=== PATIENT | male | born 1960 | race Caucasian/White ===

== ENCOUNTER 2018-09-08 14:45 | Inpatient (IN) | payer MEDICARE, OTHER ==
[~2018-09-08] VITALS: Ht 188 cm; Wt 78.5 kg
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
[2018-09-08] MEDS ORDERED: MENT1LOZ19 MM (15:31)
[2018-09-08] MEDS ORDERED: FURO-151 PO (15:31)
[2018-09-08] MEDS ORDERED: GLUC1KIT IJ (15:31)
[2018-09-08] MEDS ORDERED: PANT40TA2 PO (15:31)
[2018-09-08] MEDS ORDERED: MORP30TA2 PO (15:31)
[2018-09-08] MEDS ORDERED: AMIN30LI2 PO (15:31)
[2018-09-08] MEDS ORDERED: ALBU8.5H8 IH (15:31)
[2018-09-08] MEDS ORDERED: NA P133E RC (15:31)
[2018-09-08] MEDS ORDERED: SACC250C PO (15:31)
[2018-09-08] MEDS ORDERED: INSU100V7 SQ (15:31)
[2018-09-08] MEDS ORDERED: DOCU250C14 PO (15:31)
[2018-09-08] MEDS ORDERED: FERR325T28 PO (15:31)
[2018-09-08] MEDS ORDERED: MULT-213 PO (15:31)
[2018-09-08] MEDS ORDERED: ARGI1POW17 PO (15:31)
[2018-09-08] MEDS ORDERED: BISA10SU95 RC (15:31)
[2018-09-08] MEDS ORDERED: GUAI100S4 PO (15:31)
[2018-09-08] MEDS ORDERED: BLOO-140 IN (15:31)
[2018-09-08] MEDS ORDERED: SPIR50TA PO (15:31)
[2018-09-08] MEDS ORDERED: CARV6.252 PO (15:31)
[2018-09-08] MEDS ORDERED: MAGN400O6 PO (15:31)
[2018-09-08] MEDS ORDERED: ASCO500C18 PO (15:31)
[2018-09-08] MEDS ORDERED: SENN-168 PO (15:31)
--- NOTE | 2018-09-08 15:36 | NUR ---
BOAT FINISHER AT BEDSIDE.
[2018-09-08] MEDS ORDERED: ONDANSETRON 4 MG/2 ML VIAL ONE (15:59)
[2018-09-08] MEDS ORDERED: HYDROMORPHONE 1 MG/1 ML DISP.SYRIN ONE (15:59)
[2018-09-08] MEDS ORDERED: IV NORMAL SALINE 1000 ML BAG IV ONE (16:00)
[2018-09-08] MEDS ORDERED: ONDANSETRON 4 MG/2 ML VIAL IV ONE (16:00)
[2018-09-08] MEDS ORDERED: HYDROMORPHONE 1 MG/1 ML DISP.SYRIN IV ONE (16:00)
[2018-09-08 16:19] LABS: BASOPHILS % (AUTO) 0.3 % (0.0-2.0); EOSINOPHILS % (AUTO) 0.1 % (0.0-7.0); HEMATOCRIT 32.3 % (36.7-47.1); LYMPHOCYTES # (AUTO) 0.6 K/uL (20.0-40.0); LYMPHOCYTES % (AUTO) 4.2 % (20.5-51.5); MEAN CORPUSCULAR HGB CONC 31 g/dL (32.5-36.3); MEAN CORPUSCULAR VOLUME 77.3 fL (73.0-96.2); MONOCYTES # (AUTO) 0.7 K/uL (2.0-10.0); MONOCYTES % (AUTO) 5.1 % (0.0-11.0); NEUTROPHILS # (AUTO) 12.5 K/uL (1.8-8.9); NEUTROPHILS % (AUTO) 90.3 % (38.5-71.5); PLATELET COUNT (AUTO) 309 K/uL (152-348); RED BLOOD CELL COUNT(AUTO) 4.17 MIL/uL (4.06-5.63); WHITE BLOOD COUNT (AUTO) 13.8 K/uL (3.6-10.2)
[2018-09-08 16:21] LABS: CREATININE 0.8 mg/dL (0.6-1.3)
[2018-09-08 16:27] LABS: BILIRUBIN,DIRECT 0.3 mg/dL (0.0-0.2); BILIRUBIN,TOTAL 0.7 mg/dL (0.2-1.0); TOTAL PROTEIN, SERUM 6.7 g/dL (6.4-8.2)
[2018-09-08] MEDS ORDERED: CLINDAMYCIN PHOSPHATE 600 MG/4 ML VIAL ONE (16:27)
[2018-09-08] MEDS ORDERED: CLINDAMYCIN PHOSPHATE IV 600 MG in IV DEXTROSE 5% 100 ML IV ONE (16:30)
--- NOTE | 2018-09-08 16:47 | NUR ---
ADMITTING REPORT GIVEN TO JULI MARTÍNEZ.
--- NOTE | 2018-09-08 16:48 | NUR ---
Pt. admitted to [address] [facility], under care of Dr. ESCOBAR Belongs List completed
--- NOTE | 2018-09-08 17:15 | NUR ---
Received patient from ER, wound pictures taken and wound dressings changed, trimming machine set up operator applied, patient is atrial flutter, bp recorded was low 82/58 p64. family brought food to patient for dinner.
[2018-09-08] MEDS ORDERED: ONDANSETRON 4 MG/2 ML VIAL IV PRN (17:30)
[2018-09-08] MEDS ORDERED: MAGNESIUM HYDROXIDE 30 ML LIQUID UDC PO PRN (17:30)
[2018-09-08] MEDS ORDERED: Z GUARD REMEDY PASTE 57 GM TUBE TOP PRN (17:30)
[2018-09-08] MEDS ORDERED: ACETAMINOPHEN 325 MG TABLET PO PRN (17:30)
[2018-09-08 18:23] VITALS: BP 86/50
[2018-09-08] MEDS ORDERED: DEXTROSE 50% 50 ML DISP.SYRIN IV PRN (19:00)
[2018-09-08 19:30] VITALS: BP 85/57
--- NOTE | 2018-09-08 19:30 | NUR ---
patient received lying in bed a/ox4. no signs of acute distress. safety and comfort measures provided. bed in lowest position, side rails up x2, and bed alarm on. will continue care.
[2018-09-08] MEDS: BLOOD SUGAR DIAGNOSTIC 1 EACH STRIP VI SCH (20:40)
[2018-09-08] MEDS: INSULIN REGULAR, HUMAN 300 UNITS/3 ML VIAL SQ PRN (20:45)
[2018-09-08] MEDS: CLINDAMYCIN PHOSPHATE IV 600 MG in IV DEXTROSE 5% 100 ML IV SCH (21:01)
[2018-09-08] MEDS: MORPHINE SULFATE 2 MG/1 ML DISP.SYRIN IV PRN ×2 (21:03→23:40)
--- NOTE | 2018-09-08 21:03 | NUR ---
c/o of pain. morphine administered. tolerated well.
--- NOTE | 2018-09-08 23:40 | NUR ---
patient c/o of pain. morphine too early to administer and returned back to Pyxis, charge nurse witness. norco administered. patient tolerated well.
[2018-09-08] MEDS: HYDROCODONE/APAP 5-325MG TABLET PO PRN (23:46)
[2018-09-08 23:59] VITALS: BP 90/59
[2018-09-09] MEDS: MORPHINE SULFATE 2 MG/1 ML DISP.SYRIN IV PRN ×3 (04:09→20:26)
--- NOTE | 2018-09-09 04:09 | NUR ---
c/o of pain. morphine administered. tolerated well.
[2018-09-09 04:22] VITALS: BP 90/63
[2018-09-09] MEDS: CLINDAMYCIN PHOSPHATE IV 600 MG in IV DEXTROSE 5% 100 ML IV SCH ×3 (05:00→22:23)
--- NOTE | 2018-09-09 05:58 | NUR ---
patient slept intermittently. a/o x4. no signs of acute distress. safety and comfort measures provided. v/s stable. will endorse care to morning nurse.
[2018-09-09 06:11] LABS: BASOPHILS # (AUTO) 0.1 K/uL (0.0-8.0); BASOPHILS % (AUTO) 0.6 % (0.0-2.0); EOSINOPHILS # (AUTO) 0.1 K/uL (0.0-0.7); EOSINOPHILS % (AUTO) 0.6 % (0.0-7.0); HEMATOCRIT 29.8 % (36.7-47.1); HEMOGLOBIN 9.3 g/dL (12.5-16.3); LYMPHOCYTES # (AUTO) 0.8 K/uL (20.0-40.0); LYMPHOCYTES % (AUTO) 5.1 % (20.5-51.5); MEAN CORPUSCULAR HEMOGLOBIN 24.2 uug (23.8-33.4); MEAN CORPUSCULAR HGB CONC 31 g/dL (32.5-36.3); MONOCYTES % (AUTO) 6.3 % (0.0-11.0); NEUTROPHILS # (AUTO) 13.5 K/uL (1.8-8.9); NEUTROPHILS % (AUTO) 87.4 % (38.5-71.5); PLATELET COUNT (AUTO) 291 K/uL (152-348); RED BLOOD CELL COUNT(AUTO) 3.83 MIL/uL (4.06-5.63); WHITE BLOOD COUNT (AUTO) 15.4 K/uL (3.6-10.2)
[2018-09-09 06:14] LABS: CREATININE 0.8 mg/dL (0.6-1.3); PHOSPHOROUS 2.9 mg/dL (2.5-4.9); POTASSIUM 4.6 mmol/L (3.5-5.1)
[2018-09-09] MEDS: BLOOD SUGAR DIAGNOSTIC 1 EACH STRIP VI SCH ×4 (06:40→20:27)
--- NOTE | 2018-09-09 07:45 | NUR ---
Received patient awake in bed. AAOx4. IV on right Ac intact and patent. Patient has cellulitis on R hand/FA, redness on sacrum, R BKA, left toe amputation and excoriations on L leg, R knee. No complaints of pain at this time. Safety measures implemented. Aflutter on monitor. All needs met at this time. Comfort provided. Call light within reach. Will continue to monitor throughout shift.
[2018-09-09] MEDS: INSULIN REGULAR, HUMAN 300 UNIT/3 ML VIAL SQ PRN ×3 (07:55→17:03)
[2018-09-09] MEDS ORDERED: BISACODYL 10 MG SUPP.RECT RC PRN (08:00)
[2018-09-09] MEDS ORDERED: FLEET ENEMA 133 ML BOTTLE RC PRN (08:00)
[2018-09-09] MEDS ORDERED: ALBUTEROL SULFATE 8 GM HFA.AER.AD IH PRN (08:00)
[2018-09-09] MEDS ORDERED: MAGNESIUM HYDROXIDE 30 ML LIQUID UDC PO PRN (08:00)
[2018-09-09] MEDS ORDERED: GUAIFENESIN SUGAR FREE 100 MG/5 ML UDC PO PRN (08:00)
[2018-09-09 08:09] VITALS: BP 85/60
[2018-09-09] MEDS ORDERED: Medication Not On Formulary EA (Multivitamins W-Minerals (Multivitamin With Minerals) 1 PO SCH (09:00)
[2018-09-09] MEDS ORDERED: ALBUTEROL SULFATE 2.5 MG/3 ML NEBU NEB PRN (09:00)
[2018-09-09] MEDS ORDERED: Medication Not On Formulary EA (Saccharomyces Boulardii (Florastor) 250 MG) PO SCH (09:00)
[2018-09-09] MEDS: FUROSEMIDE 40 MG TABLET PO SCH (09:00)
[2018-09-09] MEDS ORDERED: CARVEDILOL 6.25 MG TABLET PO SCH (09:00)
[2018-09-09] MEDS ORDERED: Medication Not On Formulary EA (Amino Acids/Protein Hydrolys (Pro-Stat Liquid) 30 ML) PO SCH (09:00)
[2018-09-09] MEDS ORDERED: Medication Not On Formulary EA (Argin/Glut/Cahmb/Collag/Mv-Min (Juven Packet) 1 EACH) PO SCH (09:00)
[2018-09-09] MEDS: DOCUSATE SODIUM 250 MG CAPSULE PO SCH ×2 (09:00→16:41)
[2018-09-09] MEDS ORDERED: Medication Not On Formulary EA (Ascorbic Acid (Vitamin C) 500 MG) PO SCH (09:00)
[2018-09-09] MEDS: SPIRONOLACTONE 50 MG TABLET PO SCH (09:00)
[2018-09-09] MEDS: PANTOPRAZOLE SODIUM 40 MG TABLET.DR PO SCH ×2 (09:06→16:41)
[2018-09-09] MEDS: FERROUS SULFATE 325 MG TABEC PO SCH (09:09)
[2018-09-09] MEDS: ACIDOPHILUS/BULGARICUS CHEW TAB PO SCH ×2 (09:09→16:40)
[2018-09-09] MEDS: ASCORBIC ACID 500 MG TABLET PO SCH (09:10)
[2018-09-09] MEDS: MULTIVIT, IRON, MIN NO. 8, FA TABLET PO SCH (09:10)
[2018-09-09] MEDS: HYDROCODONE/APAP 5-325MG TABLET PO PRN ×2 (09:15→16:42)
[2018-09-09] MEDS ORDERED: IV NORMAL SALINE 500 ML BAG IV ONE (11:30)
[2018-09-09] MEDS ORDERED: MORP15TA7 PO (11:36)
--- NOTE | 2018-09-09 11:40 | NUR ---
Patient BP 81/43, below baseline. MD Viveros notified. 500 ml NS bolus ordered and administered. Patient tolerated bolus. BP back to 86/56.
[2018-09-09 12:00] VITALS: BP 86/56
[2018-09-09] MEDS ORDERED: IV NORMAL SALINE 500 ML IV ONE (12:00)
[2018-09-09] MEDS ORDERED: INSU100C (13:25)
[2018-09-09] MEDS ORDERED: BENZOCAINE/MENTH/CETYLPYRD LOZENGE MM PRN (14:30)
[2018-09-09] MEDS: PROTEIN SUPPLEMENT (PROSTAT) 30 ML LIQUID PO SCH (16:41)
[2018-09-09 16:55] VITALS: BP 86/63
--- NOTE | 2018-09-09 19:30 | NUR ---
Patient resting in bed comfortably at this time. In no acute distress. Comfort provided at all times. Continue plan of care.
--- NOTE | 2018-09-09 19:30 | NUR ---
patient received lying in bed and sleeping. no signs of acute distress. v/s stable. safety and comfort measures provided. will continue care. patient is refusing first step mattress to be placed on bed at this time. He was educated on why it was important to have it for multiple skin problems, but he did not want to be moved in bed and will let me know when he is ready to have it on his bed. will continue plan of care.
[2018-09-09 20:00] VITALS: BP 94/64
[2018-09-09] MEDS: SENNOSIDES 1 TABLET PO SCH (20:26)
[2018-09-09] MEDS: INSULIN REGULAR, HUMAN 300 UNITS/3 ML VIAL SQ PRN (20:39)
[2018-09-09] MEDS: INSULIN GLARGINE,HUM 300 UNITS/3 ML CARTRIDGE SQ SCH (20:40)
[2018-09-09] MEDS: ZOLPIDEM 5 MG TABLET PO PRN (22:28)
[2018-09-10 00:11] VITALS: BP 88/57
[2018-09-10 04:00] VITALS: BP 93/58
[2018-09-10] MEDS: CLINDAMYCIN PHOSPHATE IV 600 MG in IV DEXTROSE 5% 100 ML IV SCH ×3 (05:23→22:55)
[2018-09-10 06:21] LABS: MAGNESIUM 2.1 mg/dL (1.8-2.4); PHOSPHOROUS 3.6 mg/dL (2.5-4.9); POTASSIUM 5.1 mmol/L (3.5-5.1)
--- NOTE | 2018-09-10 06:31 | NUR ---
patient slept intermittently. no signs of acute distress. v/s stable. safety and comfort measures provided on shift. seizures precautions initiated. all medications administered and tolerated well. no urine output in urinal on my shift. will endorse care to morning nurse. c/o of pain. morphine administered. patient tolerated well.: 2025 c/o of sleeping pattern. Ambien administered. patient tolerated well.: 2227
[2018-09-10] MEDS: PANTOPRAZOLE SODIUM 40 MG TABLET.DR PO SCH ×2 (06:34→17:22)
[2018-09-10] MEDS: BLOOD SUGAR DIAGNOSTIC 1 EACH STRIP VI SCH ×4 (06:37→20:47)
[2018-09-10 06:55] LABS: BASOPHILS # (AUTO) 0.1 K/uL (0.0-8.0); BASOPHILS % (AUTO) 0.5 % (0.0-2.0); EOSINOPHILS # (AUTO) 0.1 K/uL (0.0-0.7); EOSINOPHILS % (AUTO) 0.5 % (0.0-7.0); HEMATOCRIT 32.5 % (36.7-47.1); HEMOGLOBIN 10.1 g/dL (12.5-16.3); LYMPHOCYTES # (AUTO) 0.7 K/uL (20.0-40.0); LYMPHOCYTES % (AUTO) 5.6 % (20.5-51.5); MEAN CORPUSCULAR HEMOGLOBIN 24.3 uug (23.8-33.4); MEAN CORPUSCULAR HGB CONC 31 g/dL (32.5-36.3); MONOCYTES # (AUTO) 0.8 K/uL (2.0-10.0); MONOCYTES % (AUTO) 6.3 % (0.0-11.0); NEUTROPHILS # (AUTO) 10.8 K/uL (1.8-8.9); NEUTROPHILS % (AUTO) 87.1 % (38.5-71.5); PLATELET COUNT (AUTO) 324 K/uL (152-348); RED BLOOD CELL COUNT(AUTO) 4.16 MIL/uL (4.06-5.63); WHITE BLOOD COUNT (AUTO) 12.4 K/uL (3.6-10.2)
--- NOTE | 2018-09-10 07:21 | NUR ---
RECEIVED PATIENT ALERT AND ORIENTED WITH NO SOB NOTED AT THIS TIME , NO C/O PAIN AT THIS TIME. WILL PROVIDE SAFETY AND COMFORT AT ALL TIMES. CALL LIGHT WITHIN REACHED. WILL CONTINUE TO MONITOR AND CONTINUE TREATMENT PLAN.
[2018-09-10] MEDS: PROTEIN SUPPLEMENT (PROSTAT) 30 ML LIQUID PO SCH ×2 (08:00→17:00)
[2018-09-10] MEDS: FUROSEMIDE 40 MG TABLET PO SCH (08:25)
[2018-09-10] MEDS: DOCUSATE SODIUM 250 MG CAPSULE PO SCH ×2 (08:26→17:22)
[2018-09-10] MEDS: ASCORBIC ACID 500 MG TABLET PO SCH (08:26)
[2018-09-10] MEDS: MULTIVIT, IRON, MIN NO. 8, FA TABLET PO SCH (08:26)
[2018-09-10] MEDS: SPIRONOLACTONE 50 MG TABLET PO SCH (08:26)
[2018-09-10] MEDS: ACIDOPHILUS/BULGARICUS CHEW TAB PO SCH ×2 (08:26→17:22)
[2018-09-10] MEDS: FERROUS SULFATE 325 MG TABEC PO SCH (08:26)
--- NOTE | 2018-09-10 08:45 | NUR ---
Pt alert and oriented x 4. Pt questioning about side rails padding and wants it off. Discussed risk off taking off padding in side rail and its purpose. Pt states "i dont have seizure" noted pt that epilepsy is charted as a medical history. Pt states that its a mistake. Call light is within reach.
[2018-09-10] MEDS: MORPHINE SULFATE 2 MG/1 ML DISP.SYRIN IV PRN ×3 (09:34→23:13)
[2018-09-10 09:51] VITALS: BP 93/58
[2018-09-10 11:14] VITALS: BP 110/60
[2018-09-10] MEDS: HYDROCODONE/APAP 5-325MG TABLET PO PRN (14:14)
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
--- NOTE | 2018-09-10 14:30 | NUR ---
NOTIFIED DR. ESCOBAR THAT PER FAMILY WAS URINALYSIS FOR PATIENT DUE TO PATIENT HAS HX OF UTI . DR. ESCOBAR ORDERED URINALYSIS PROFILE AND URINE CULTURE. ALSO DR. ESCOBAR ORDERED PSYCH CONSULT BECAUSE PATIENT STATED THAT HE DOESN'T WANT TO LIVE ANYMORE.
[2018-09-10 15:13] VITALS: BP 114/6
--- NOTE | 2018-09-10 16:30 | NUR ---
Pt seen today for education. Checked HgbA1c 8.4H, POC was high (>180mg/dl), BG is controlled today, pt started insulin. Pt recently on cardiac diet, recs adding CCHO diet for better controlled of BG. Addendum: 09/10/18 at [address] Amended: Links added.
--- NOTE | 2018-09-10 19:45 | NUR ---
PATIENT ALERT ORIENTED, NO SOB NO CHEST PAIN NOTED. CONT PAIN MANAGEMENT OF R HAND CELLULITIS. KEPT CLEAN DRY AND COMFORTABLE. CALL LIGHT WITHIN REACH.
[2018-09-10 20:00] VITALS: BP 103/64
[2018-09-10 20:13] LABS: *BILIRUBIN,URIN NEGATIVE (NEGATIVE); *BLOOD, URINE NEGATIVE (NEGATIVE); *CLARITY,URINE CLEAR (CLEAR); *COLOR,URINE YELLOW (YELLOW); *KETONES,URINE NEGATIVE (NEGATIVE); *UROBILINOGEN,URINE 0.2 E.U./dl (NORMAL); LEUKOCYTE ESTERASE ,URINE NEGATIVE (NEGATIVE); NITRITE, URINE NEGATIVE (NEGATIVE); PH,URINE 5.5 (5.0-8.0); UGLUCOSE NEGATIVE (NEGATIVE)
[2018-09-10] MEDS: INSULIN GLARGINE,HUM 300 UNITS/3 ML CARTRIDGE SQ SCH (20:52)
[2018-09-10] MEDS: INSULIN REGULAR, HUMAN 300 UNIT/3 ML VIAL SQ PRN (20:53)
[2018-09-10] MEDS: SENNOSIDES 1 TABLET PO SCH (20:57)
[2018-09-10] MEDS: ZOLPIDEM 5 MG TABLET PO PRN (21:02)
[2018-09-11] MEDS: CLINDAMYCIN PHOSPHATE IV 600 MG in IV DEXTROSE 5% 100 ML IV SCH ×2 (05:05→13:43)
[2018-09-11] MEDS: PANTOPRAZOLE SODIUM 40 MG TABLET.DR PO SCH (06:02)
[2018-09-11] MEDS: BLOOD SUGAR DIAGNOSTIC 1 EACH STRIP VI SCH ×2 (06:03→11:51)
[2018-09-11 06:09] VITALS: BP 130/82
[2018-09-11 06:35] LABS: BASOPHILS % (AUTO) 0.3 % (0.0-2.0); EOSINOPHILS # (AUTO) 0.1 K/uL (0.0-0.7); EOSINOPHILS % (AUTO) 0.5 % (0.0-7.0); HEMATOCRIT 30.9 % (36.7-47.1); HEMOGLOBIN 9.7 g/dL (12.5-16.3); LYMPHOCYTES # (AUTO) 0.8 K/uL (20.0-40.0); MEAN CORPUSCULAR HEMOGLOBIN 24.1 uug (23.8-33.4); MEAN CORPUSCULAR HGB CONC 32 g/dL (32.5-36.3); MEAN CORPUSCULAR VOLUME 76.6 fL (73.0-96.2); MONOCYTES # (AUTO) 0.7 K/uL (2.0-10.0); MONOCYTES % (AUTO) 5.7 % (0.0-11.0); NEUTROPHILS # (AUTO) 10.1 K/uL (1.8-8.9); NEUTROPHILS % (AUTO) 86.5 % (38.5-71.5); PLATELET COUNT (AUTO) 335 K/uL (152-348); RED BLOOD CELL COUNT(AUTO) 4.03 MIL/uL (4.06-5.63); WHITE BLOOD COUNT (AUTO) 11.7 K/uL (3.6-10.2)
[2018-09-11 06:50] LABS: CREATININE 0.7 mg/dL (0.6-1.3); MAGNESIUM 1.8 mg/dL (1.8-2.4); PHOSPHOROUS 3.9 mg/dL (2.5-4.9); POTASSIUM 4.9 mmol/L (3.5-5.1)
[2018-09-11] MEDS: MULTIVIT, IRON, MIN NO. 8, FA TABLET PO SCH (08:44)
[2018-09-11] MEDS: FUROSEMIDE 40 MG TABLET PO SCH (08:44)
[2018-09-11] MEDS: DOCUSATE SODIUM 250 MG CAPSULE PO SCH (08:44)
[2018-09-11] MEDS: ACIDOPHILUS/BULGARICUS CHEW TAB PO SCH (08:44)
[2018-09-11] MEDS: PROTEIN SUPPLEMENT (PROSTAT) 30 ML LIQUID PO SCH (08:44)
[2018-09-11] MEDS: ASCORBIC ACID 500 MG TABLET PO SCH (08:44)
[2018-09-11] MEDS: FERROUS SULFATE 325 MG TABEC PO SCH (08:44)
[2018-09-11] MEDS: MORPHINE SULFATE 2 MG/1 ML DISP.SYRIN IV PRN ×2 (08:45→14:13)
[2018-09-11] MEDS: SPIRONOLACTONE 50 MG TABLET PO SCH (09:00)
[2018-09-11] MEDS ORDERED: CLIN300C11 PO (11:29)
[2018-09-11 11:31] VITALS: BP 102/65
[2018-09-11] MEDS: INSULIN REGULAR, HUMAN 300 UNIT/3 ML VIAL SQ PRN (11:52)
--- NOTE | 2018-09-11 12:51 | NUR ---
Received pt. in bed in no distress. A/OX4 verbally responsive and able to make his needs known. No new skin condition. All needs attended and met promptly. All due medications given as ordered and tolerated well. No s/sx of hypo/hyperglycemia. KEN midline patent and intact with no IV complications. Safety measures in place. Call light and all frequently used items within pt. reach. Will continue to monitor accordingly.
--- NOTE | 2018-09-11 14:32 | NUR ---
Pt. seen by procurement forester. Pt. consented to LLE wound debridement. Pt. tolerated procedure well.
[2018-09-11 14:53] VITALS: BP 106/77
--- NOTE | 2018-09-11 16:35 | NUR ---
Discharge Note: Received D/C order from Dr. Omid Monte. Pt. received all due medication as ordered. Resident remained stable at this time. Routine round with pt; pt. remain cooperative, A/OX4 with capacity to make decision. Lungs sounds clear to auscultation bilaterally, no respiratory distress. Heart with regular rate and rhythm, no murmur, rub or gallop. Abdomen soft, non-tender, bowel sounds present in all 4 quadrants. Conjunctivae clear, PERRL. Pt. served with lunch as ordered and tolerated well. Skin care rendered, all dressing changed in AM per MD order. All belongings are prepared. Inventory done all accountable for. Instructed pt. to follow up with attending physician at SNF. Pt. teaching provided which include but not limited to meds administration, risk of fall, and skin mgt. Gave pt. information regarding returning to community. Discharge paper signed by pt. Provided pt. discharge packet. Pt. refused to have skin pictures taken stated "I just want to go." Discussed risk and benefits with pt, pt. verbalized clear understanding. No further questions from the resident about the discharge instructions at this time and verbalized clear understanding. D/C KEN midline, pt. tolerated procedure well. Pt. to continue PO ATB @ SNF x 10 days. Ambulance staff on-site @ 1600, report given to receiving staff. Called [facility] and provided nursing report to JULI Miranda, no further question. Res. left the facility via gurney at 1635 and d/c to [facility]. MD made aware of resident discharge.
== END 2018-09-11 16:37 | DRG 853 ==
LOC: ER 14:45 → TELE3 17:03 → MEDSURG3 09-10 11:17
PROVIDERS: ADMIT Student in an Organized Health Care Education/Training Program; ATTEND Student in an Organized Health Care Education/Training Program
PROC: 0KBW0ZZ Excision of Left Foot Muscle, Open Approach (ICD-10-PCS; 2018-09-08)
PROC: 05HA33Z Insertion of Infusion Device into Left Brachial Vein, Percutaneous Approach (ICD-10-PCS; principal; 2018-09-10)
DX: A41.9 Sepsis, unspecified organism (principal); E43 Unspecified severe protein-calorie malnutrition; L03.113 Cellulitis of right upper limb; I50.32 Chronic diastolic (congestive) heart failure; L97.423 Non-pressure chronic ulcer of left heel and midfoot with necrosis of muscle; I48.92 Unspecified atrial flutter; D68.59 Other primary thrombophilia; Z68.22 Body mass index [BMI] 22.0-22.9, adult; E11.51 Type 2 diabetes mellitus with diabetic peripheral angiopathy without gangrene; G40.909 Epilepsy, unspecified, not intractable, without status epilepticus; E11.42 Type 2 diabetes mellitus with diabetic polyneuropathy; I25.10 Atherosclerotic heart disease of native coronary artery without angina pectoris; Z95.1 Presence of aortocoronary bypass graft; Z89.511 Acquired absence of right leg below knee; L21.9 Seborrheic dermatitis, unspecified; Z79.4 Long term (current) use of insulin; E11.621 Type 2 diabetes mellitus with foot ulcer; K70.30 Alcoholic cirrhosis of liver without ascites; Y90.9 Presence of alcohol in blood, level not specified; D64.9 Anemia, unspecified; Z86.73 Personal history of transient ischemic attack (TIA), and cerebral infarction without residual deficits; Z79.899 Other long term (current) drug therapy; K21.9 Gastro-esophageal reflux disease without esophagitis
CPT/HCPCS: 36415; 71045; 73110; 73130; 83605; 83690; 83735; 84100; 85025; 87040; 87086; 93005; 97110; 97112; 97165; 97530; A4663; G0378; J1170; J1815; J2270; J2405; J3490; J7030; J7040; J7050; J7060